=== PATIENT | male | born 1995 | race Caucasian/White ===

== ENCOUNTER 2020-10-09 11:52 | Emergency (ER) | payer SELFPAY ==
[~2020-10-09] VITALS: Ht 175.3 cm; Wt 111.4 kg
[2020-10-09 12:13] VITALS: BP 139/85
[2020-10-09] MEDS ORDERED: LIDO20SO16 PO (13:14)
[2020-10-09] MEDS ORDERED: PRED20TA PO (13:14)
[2020-10-09] MEDS ORDERED: CLIN-97 PO (13:14)
== END 2020-10-09 13:28 | disposition home or self-care (01) ==
LOC: ER 11:55
DX: K04.7 Periapical abscess without sinus (principal); Z79.2 Long term (current) use of antibiotics; Z79.899 Other long term (current) drug therapy
CPT/HCPCS: 99283

== ENCOUNTER 2022-01-05 07:58 | Emergency (ER) | payer MEDICAID ==
[~2022-01-05] VITALS: Ht 175.3 cm; Wt 104.5 kg
[~2022-01-05 07:58] MED LIST: CLIN-97 PO; LIDO20SO16 PO
[2022-01-05 08:02] VITALS: BP 122/80
[2022-01-05] MEDS ORDERED: AMOX-101 PO (09:19)
== END 2022-01-05 09:46 | disposition home or self-care (01) ==
LOC: ER 07:58
DX: K08.89 Other specified disorders of teeth and supporting structures (principal)
CPT/HCPCS: 99283